=== PATIENT | female | born 1990 | race African-American/Black ===

== ENCOUNTER 2021-04-13 02:27 | Emergency (ER) | payer MEDICAID ==
[~2021-04-13] VITALS: Ht 154.9 cm; Wt 52.0 kg
[2021-04-13] MEDS ORDERED: SODIUM CHLORIDE 0.9% 1,000 ML IV ONE (03:00)
[2021-04-13 03:31] LABS: EOSINOPHILS % 0.5 % (0.0-5.0); HEMATOCRIT. 39.9 % (36.0-48.0); HEMOGLOBIN. 13.1 g/dL (12.0-16.0); LYMPHOCYTES % 26.3 % (20.0-50.0); MEAN CORPUSCULAR HEMOGLOBIN 29.5 pg (28.0-32.0); MEAN CORPUSCULAR VOLUME 89.6 fL (81.0-99.0); MEAN PLATELET VOLUME 7.8 fl (7.4-10.4); MONOCYTES % 4.6 % (2.0-8.0); NEUTROPHILS % 67.6 % (40.0-76.0); PLATELET 320 x1000/uL (130-400); RED BLOOD CELL COUNT 4.45 mill/uL (4.2-5.4); RED CELL DISTRIBUTION WIDTH 21.9 % (11.6-14.6)
[2021-04-13 03:35] LABS: CHLORIDE 111 mEq/L (98-107)
[2021-04-13 03:36] LABS: HCG SCREEN NEGATIVE
[2021-04-13 04:06] LABS: ETHANOL BLOOD 430 mg/dL
[2021-04-13 09:59] VITALS: BP 122/74
== END 2021-04-13 10:05 | disposition home or self-care (01) ==
LOC: ER 02:40
DX: F10.129 Alcohol abuse with intoxication, unspecified (principal); Y90.8 Blood alcohol level of 240 mg/100 ml or more
CPT/HCPCS: 36415; 80053; 80320; 84703; 85025; 96360; 99285; Z7610; G0480